=== PATIENT | male | born 1985 | race African-American/Black ===

== ENCOUNTER 2016-12-08 14:26 | Emergency (ER) | payer BC ==
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
== END 2016-12-08 16:40 | disposition home or self-care (01) ==
LOC: ER 14:26
DX: I82.5Y1 Chronic embolism and thrombosis of unspecified deep veins of right proximal lower extremity (principal)

== ENCOUNTER 2017-01-06 19:36 | Emergency (ER) | payer BC ==
--- NOTE | 2017-01-08 00:48 | ER ---
ADMIT: 01/06/2017 RM/LOC: ER [facility] MR#: [id number] [address] [place] [address] Emergency Room Report SEX: M AGE: 31 : 1985 DATE: 01/06/2017 HISTORY OF PRESENT ILLNESS: The patient is a 31-year-old male with past medical history of DVT on the right leg on Xarelto, came to the ER with chief complaint of right foot pain, the patient states he was playing a basketball. He jumped up while he was dropping, he twisted his right foot and right ankle and has pain in the dorsum of the right foot and some swelling over the area on the lateral part, and the patient denies similar symptoms in the past, and the patient states he was able to walk on it, but it was antalgic, and the incident happened just before coming to the hospital, the patient denies any trauma to other parts of the body or head trauma or loss of consciousness. PHYSICAL EXAMINATION: VITAL SIGNS: The patient has stable vitals. GENERAL: Quite, sitting in bed. No signs of head trauma. No signs of trauma to other parts of the body. HEAD AND NECK, CHEST, AND ABDOMEN: Noncontributory and negative. EXTREMITIES: Range of motion of bilateral knees is normal, and hips are normal without any tenderness or pain. On the dorsum of the right foot on the lateral part, there is swelling 2 x 2 inches, which is tender, range of motion, inversion, and eversion of the right ankle is moderately painful for the patient. The patient has no tenderness on the medial or lateral malleolus. Normal neurovascular exam, and the patient can do active and passive range of motions of the foot and ankle. Right ankle x-ray and right ankle foot was negative for any acute changes, although there was a questionable cortical possible disruption of the cuboid in the right lateral foot, but I believe it could be just artifact. Pain was controlled. The patient was put in a strap. The patient was discharged home, return precautions, pain control medications, advice on followup with the primary doctor in 48 hours for recheck as needed. Nils Livingston MD/ [place] JOB #: [id number] CC: Nils Livingston MD, Attending Physician Greg Brito MD, Family Physician
== END 2017-01-06 22:14 | disposition home or self-care (01) ==
LOC: ER 19:36
DX: S90.31XA Contusion of right foot, initial encounter (principal); W01.0XXA Fall on same level from slipping, tripping and stumbling without subsequent striking against object, initial encounter; Y93.39 Activity, other involving climbing, rappelling and jumping off; Y93.67 Activity, basketball; Z86.718 Personal history of other venous thrombosis and embolism; Z79.01 Long term (current) use of anticoagulants